=== PATIENT | female | born 1960 | race Caucasian/White ===

== ENCOUNTER 2022-04-24 15:14 | Outpatient (CLI) | payer BC, SELFPAY ==
--- NOTE | 2022-04-24 15:20 | CRLHL7_ITS ---
For Patients: As a result of the Cures Act, medical imaging exams and procedure reports are released immediately into your electronic medical record. You may view this report before your referring provider. If you have questions, please contact your health care provider. BILATERAL SCREENING MAMMOGRAM WITH COMPUTER-AIDED DETECTION AND TOMOSYNTHESIS TECHNIQUE: CC and MLO views were obtained. These mammographic images have been obtained using full-field digital technique. These mammographic images were interpreted with the benefit of computer-aided detection. Breast Tomosynthesis was used in this interpretation. COMPARISON FILM: 02/23/21, 01/12/20, 04/04/18. FINDINGS: The breasts are almost entirely fatty IMPRESSION: There is no radiographic evidence for malignancy. ASSESSMENT: BI-RADS Category 1: Negative RECOMMENDATION: Routine screening mammogram in 1 year. A lay language report of this examination will be provided to the patient. Pepe Angel M.D. Diagnostic Radiologist [email or web address] EARLENE/addis / be/Dictated by: Pepe Angel MD @ 04/25/2022 1:15:00 PM (Electronically Signed)
== END 2022-04-24 15:15 | disposition home or self-care (01) ==
LOC: MAMMO 15:15
PROVIDERS: PCP Internal Medicine; Visit Provider Internal Medicine
DX: Z12.31 Encounter for screening mammogram for malignant neoplasm of breast (principal)
CPT/HCPCS: 77063; 77067

== ENCOUNTER 2022-12-14 08:00 | Outpatient (CLI) | payer BC, SELFPAY ==
--- OUTSIDE RECORDS SUMMARY | 2022-12-15 07:32 | XMS_ITS | Continuity of Care Document ---
Author Name Unknown Organization [facility] Address [address] [place] [address] Phone Care Team Providers Care Asset Protection Detective Name Role Phone Kerwin Huerta MD Unavailable Unavailable Allergies, Adverse Reactions, Alerts Substance Reaction Status Criticality venom-honey bee Active No Informati on Medications Medication Instructions Dosage Effective Dates (start - stop) Status Comments LASIX (unknown strength) Not Available - Active ATORVASTATIN CALCIUM (unknown strength) Not Available - Active prednisone 20 mg tablet take 1 tablet twice daily x 7 days, then 1 tablet daily x 7 days - No Longer Active Mobic 7.5 mg tablet take 1 tablet (7.5MG) by oral route twice daily - No Longer Active Refills per PMD Procedures Procedure Date Office/Outpatient Visit,[facility] [place] Office/Outpatient Visit,[facility], [facility] 2011 Advance Directives Directive Yes / No Effective Date File Name No Information Encounters Encounter Description Practice Location Reason(s) For Visit Diagnoses Date Provider Providers Copied on Encounter Office/Outpat ient Visit,[place], [facility], [address], [place], [place], [id number], [place] tel:[phone] [facility] [place] Other intervertebral disc displacement, lumbar regionSpinal stenosis, lumbar region with neurogenic claudication 8 Bradley Suresh. [facility], [address], [address], [place], [place], [id number] , [place]. tel:[phone] Referring Provider: Kerwin Rodriguez, [facility] [address], [address], [place], [address] . tel:[phone] Office/Outpat ient Visit,New, [facility], [address], [place], [address], [place] tel:[phone] [facility] Hypercholestero lemiaArthropath y/Arthritis 2 Bradley Suresh. [facility], [address], [address], [place], [place], [id number] , . [phone] Family History Family Member Type Diagnosis Age At Onset No Information Payers Payer name Insurance type Covered democrat ID Nanda lira(kaye Beard CI [id number] Social History Type Description Quantity Date Captured Comments Alcohol Use Details Unknown Caffeine Use Details Unknown Tobacco Use Status Never smoked tobacco 2017 Smoking Status Never smoker Non-Smoking Tobacco Use Details : No Details Available : No Details Available Sex Female Vital Signs Date / Time: Height Weight BMI Pulse Rate Blood Pressure Temperature Respiratory Rate Body Surface Area Head Circumference Head Circ. Percentile Wt./Jr. Percentile BMI percentile Pulse Ox Inhaled Ox 2:20 PM 65.25 in 67.585 kg (149.00 lbs) 24.6 0 kg/m eter (2) Chief Complaint And Reason For Visit No Information Reason For Referral Reason For Referral No Information History Of Present Illness Encounter Date Complaint History Of Prese nt Illness No Information Functional Status Date Functional Assessmen t No Information Instructions Date Instruction Additional Infor mation No Information Assessments Type Assessment Date assessment Other intervertebral disc displa cement, lumbar region assessment Spinal stenosis, lumbar region w ith neurogenic claudication Patient Care Teams Name Effective Dates (start - stop) Status Members No Information
== END 2022-12-14 08:01 | disposition home or self-care (01) ==
LOC: NFLDREF 12-15 07:31
PROVIDERS: PCP Internal Medicine; Referring Provider Internal Medicine; Visit Provider Internal Medicine
DX: Z00.00 Encounter for general adult medical examination without abnormal findings (principal); E78.5 Hyperlipidemia, unspecified; I10 Essential (primary) hypertension; E66.9 Obesity, unspecified
CPT/HCPCS: 80048; 80061

== ENCOUNTER 2023-05-24 11:34 | Outpatient (CLI) | payer BC, SELFPAY | END 2023-05-24 11:35 | disposition home or self-care (01) | LOC: NFLDREF 11:35 | PROVIDERS: PCP Internal Medicine; Visit Provider Internal Medicine | DX: Z01.818 Encounter for other preprocedural examination (principal) | CPT/HCPCS: 80053 ==

== ENCOUNTER 2023-06-06 08:53 | Day surgery (SDC) | payer BC, SELFPAY ==
[2023-06-06] VITALS (25 sets, daily range): BP systolic 92–143; BP diastolic 61–84; PULSE 50–72; RESP 16–18; TEMP 35.4–36.7; O2SAT 92–100; BMI 36.0
[2023-06-06] MEDS: ACETAMINOPHEN 500 MG TABLET 1000 MG PO ×3 (09:00→23:53)
[2023-06-06] MEDS: OXYCODONE (CR) 10 MG TAB.ER.12H PO (09:00)
[2023-06-06] MEDS: LACTATED RINGERS 1000 ML 1,000 ML 100 ML IV ×3 (09:15→13:50)
[2023-06-06] MEDS: SODIUM CHLORIDE 0.9 % (FLUSH) 10 ML SYRINGE IVF (09:15)
--- NOTE | 2023-06-06 09:45 | XR_ITS ---
Patient: ANNA CARRINGTON Facility:?[facility] Patient ID:?[id number] Site Patient ID:?[id number]. Site :?1960 Study:?XRay-Hip Left 2V POST OP-06/06/2023 2:06:12 PM Ordering Physician:ADRIANA Final Report: Indication: Postop Technique: AP hip centered pelvis and lateral view left hip Findings/Impression: Hardware from a left total hip arthroplasty is in satisfactory position. Bone alignment is normal. No sign of acute fracture. Postop changes are within normal limits. Dictated by Pepe Angel MD @ 06/07/2023 8:19:22 AM Signed by:?Pepe Angel MD @06/07/2023 8:19:22 AM (Electronic Signature)
--- NOTE | 2023-06-06 09:46 | W.PM.H&PU ---
History & Physical Update History & Physical Update H&P Reviewed and patient assessed: No changes noted
--- NOTE | 2023-06-06 09:47 | SUR.PREOP ---
TIME?OUT:?0947 PT/RN/AUDIT MACHINE OPERATOR?VERIFICATION?OF?SURGICAL?SITE,?PROCEDURE,?AND?CONSENT OBTAINED?PRIOR?TO?INVASIVE?PROCEDURE.
[2023-06-06] MEDS: fentaNYL 100 MCG/2 ML inj IVP (09:52)
[2023-06-06] MEDS: MIDAZOLAM HCL 1 MG/ML inj IVP (09:52)
--- NOTE | 2023-06-06 10:00 | XR_ITS ---
Patient: ANNA CARRINGTON Facility:?[facility] Patient ID:?[id number] Site Patient ID:?[id number]. Site :?1960 Study:?XRay-Extremity Left TOTAL HIP, AA-06/06/2023 2:25:30 PM Ordering Physician:ADRIANA Final Report: Indication: Hip replacement surgery Technique: AP hip fluoroscopic image. Fluoroscopy time 54.6 seconds. Findings/Impression: Hardware from a left total hip arthroplasty is in satisfactory position. Dictated by Pepe Angel MD @ 06/07/2023 12:34:22 PM Signed by:?Pepe Angel MD @06/07/2023 12:34:22 PM (Electronic Signature)
--- NOTE | 2023-06-06 10:38 | W.PM.NB ---
Nerve Block Nerve Block Time Seen by Provider: 10:05 Date Seen: 06/06/23 Type of block requested by surgeon for post-operative analgesia: RONAL/LFCN Side: left Time out performed: Yes Verification of patient name: Yes Verification of date of : Yes Site marking: site marked Name of person performing procedure: Vinay Dominguez Assistants, if any: Arsenio Ramachandran Continuous monitoring Was continuous monitoring of O2 sat, B/P, environmental monitoring specialist, recorded every 15 minutes?: Yes Procedure Checklist: sterile prep, needles and gloves Ultrasound guided. Images saved: Yes Medications given in 5ml increments after negative aspiration: Ropivicaine %: 0.5 mL: 30 Needle gauge: 21 Decadron (mg): 10 Precedex (mcg): 25 Patient tolerated procedure well: Yes Additional comments: Injected in 5mL increments after negative aspiration Block Charges Block Charge (with Pro Fee): Other Periph Nerve Block (RONAL/LFC) Use of Ultrasound Machine for Block: Yes- US Guidance/pain block
[2023-06-06] MEDS: TRANEXAMIC ACID 100 MG/ML INJ 1000 MG IV (11:09)
[2023-06-06] MEDS: CEFAZOLIN 2 GM in 0.9 % SODIUM CHLORIDE Mini-bag 100 ML IVPB ×2 (11:09→18:33)
--- NOTE | 2023-06-06 12:24 | P.ORPRC_ITS ---
Procedure Note Date of procedure: 06/06/23 Procedure: PREOPERATIVE DIAGNOSIS: 1. Left hip osteoarthritis, severe, primary POSTOPERATIVE DIAGNOSIS: 1. Left hip osteoarthritis, severe, primary PROCEDURE: 1. Left total hip arthroplasty-anterior approach 2. 46965 - intraoperative fluoroscopy up to 1 hour. SURGEON: Artie Mariee MD. WARRANTY MANAGER: Karan Sheldon PA-C; MANAN Rubio - Of note, a skilled assisted living assistant was critical for this case to aid in patient positioning, tissue retraction, limb manipulation/positioning, dislocation/relocation, patient safety, and closure. ANESTHESIA: Spinal anesthetic EBL: 300 mL IMPLANTS: DePuy J&J uncemented total hip [place] cup size 50, hole eliminator, +0 neutral liner Actis stem, high offset, size 8 +1 mm ceramic 32mm head. COMPLICATIONS: None evident INDICATIONS: The patient is a pleasant 63-year-old female who has experienced severe left hip pain and difficulty bearing weight. Workup included x-rays which revealed severe osteoarthrosis in the hip. Given the deformity, the dysf unction, and the pain, as well as the failure of nonoperative management, recommendation was made for surgery. FINDINGS: Full-thickness cartilage loss diffusely throughout the femoral head and acetabulum. Large osteophytes around the perimeter of the acetabulum and femoral head/neck junction. Moderate effusion upon entering the joint. Abundant synovitis noted throughout the hip. DESCRIPTION OF PROCEDURE: Following a thorough discussion of risks, benefits, and alternatives consent was obtained and the left hip was marked. The patient was brought to the operating room and placed supine on the operating table. Induction of anesthesia was undertaken. 2 g IV Ancef and 1 g tranexamic acid was administered within 1 hr of incision preoperatively. Proper time-out was performed identifying proper patient, site, procedure. The operative extremity was prepped and draped in the appropriate sterile fashion using ChloraPrep after the patient was positioned on the [place] table with head in neutral alignment and all bony prominences well padded. C-arm fluoroscopic imaging was utilized to confirm proper pelvis rotation and position, and to get true AP films of both the contralateral left, and the affected left hip. This is for comparison. A longitudinal incision was made starting approximately 1 cm distal to the ASIS, and 3-4 cm lateral. The incision was extended distally aiming toward the lateral border the patella. Sharp incision through skin and bovie cautery through the subcutaneous tissue allowed identification of the TFL fascia. This was sharply divided, and the fascia bluntly released from the muscle fibers as we dissected medial. Upon coming to the medial border, we were able to retract the TFL laterally, and penetrated the deeper fascia and identify the crossing circumflex vessels. These were ligated/cauterized. The rectus was elevated from the capsule, and retractors placed laterally and medially along the femoral neck to help with visualization of the capsule. We then performed an inverted T capsulotomy. The capsule was tagged for later repair. Retractors were placed inside the capsule. The femoral neck was visualized after releasing medially down to the lesser trochanter, along the saddle laterally, and up onto the acetabulum. The femoral neck cut was made in line with our preoperative templating. The head was removed in a single piece, and sized. We turned our attention to acetabular preparation. Initially, the labrum was resected from around the perimeter, the pulvinar was excised, allowing us to visualize the false wall. We started the reaming with a 43 mm reamer. This was medialized down to the true wall. We then enlarged our reamers sequentially up to one size less than the selected cup size. We trialed at the same size and found it to have an excellent fit. The selected cup was then opened, inserted, and impacted in line with the goal of 40-45? of abduction, and 20-25? of anteversion. This was confirmed on C-arm fluoroscopic imaging to be in the appropriate/goal position. Once the cup was placed we placed a hole eliminator and a liner consistent with preop planning. Attention was turned to the femoral preparation. The limb was extended, externally rotated, and adducted. The posteromedial capsule was released, as retractors were placed allowing excellent access to the proximal femur. Initially a card boxer was followed by canal finder followed by various broaches. We broached sequentially up to size noted above, found it to have excellent rotational control, and trialing various heads and necks, revealed that appropriate neck offset, and the above noted head size provided the greatest stability, and samaritan of length, and offset. C-arm fluoroscopic imaging confirmed position of the stem, as well as leg lengths, which were compared with the pre procedure all fluoroscopic images. Trial implants were removed, the real femoral stem inserted, as was the ceramic head. After reducing, the leg was placed through range of motion and stability was confirmed anterior, posterior, and lateral. A 3 min Betadine soak was then performed, and thorough irrigation with normal saline followed. Closure of the capsule was performed with #1 PDS. Bleeding was confirmed to be controlled at this stage, and the TFL fascia was closed with #0 strata fix. Subcutaneous, and subcuticular closure was performed with 2-0 Vicryl and 4-0 Monocryl, respectively. Dressings were applied, and the patient was awoken from anesthesia and transferred the PACU in stable condition. A skilled assisted living assistant was critical for this case to aid in patient positioning, tissue retraction, proximal femur exposure, limb manipulation/positioning, dislocation/relocation, patient safety, and closure. PLAN: 1. Weight bear as tolerated operative extremity. 2. 23 hr perioperative antibiotics. 3. Ice. 4. PT/OT consults for ambulation assistance/mobility education. 5. Social work consult for discharge planning. 6. [place] [facility] [place] and [place].
--- NOTE | 2023-06-06 13:30 | W.ANESCHARGE ---
Anesthesia Charges Start Date/Time Anesthesia Start Date: 06/06/23 Anesthesia Start Time: 10:40 Stop Date/Time Anesthesia Stop Date: 06/06/23 Anesthesia Stop Time: 13:24
[2023-06-06] MEDS: METOCLOPRAMIDE HCL 5 MG/ML INJ 10 MG IVP (13:40)
[2023-06-06] MEDS: fentaNYL 100 MCG/2 ML inj 50 MCG IVP ×2 (13:48→14:00)
[2023-06-06] MEDS: OXYCODONE 5 MG TABLET PO ×2 (18:39→22:11)
--- NOTE | 2023-06-06 19:27 | PM.IMCN1 ---
Date of Consult Patient: [facility] Patient Consult date: 06/06/23 Requesting Physician: Orthopedics Primary Care Provider: Alyssa Xavier MD Consult Narrative Reason for consult: h/o PE and DVT Narrative: Ignacia Miller is a 63 year old female with a history of postop PE and DVT in 2019 that was treated with apixaban, essential hypertension, hyperlipidemia, left bundle-branch block, and obesity who underwent elective left total hip arthroplasty today by Dr. Anaya. She is doing well postoperatively. She denies any chest pain or shortness of breath. She notes that this postop. Is going a lot better than it did when she had ankle surgery in 2019. She tells me that she has pain in the muscles and ligaments around her left hip, but the joint itself is no longer painful like it has been before surgery, and that is a big relief to her. She had a bit of dizziness earlier getting up to use the bedside commode, but this time using the bedside commode she had no dizziness. Review of Systems Status of ROS: Reports: 6 or more systems reviewed and unremarkable except as noted in History and below PFSH [facility] Medical History (Updated 06/06/23 @ 19:49 by Ellen Cameron MD) Left bundle branch block (LBBB) ?I44.7 - Left bundle-branch block, unspecified (ICD-10) Localized osteoarthrosis of right hip ?M16.11 - Unilateral primary osteoarthritis, right hip (ICD-10) Localized osteoarthrosis of left hip ?M16.12 - Unilateral primary osteoarthritis, left hip (ICD-10) Essential hypertension ?I10 - Essential (primary) hypertension (ICD-10) Obesity with body mass index greater than 30 ?E66.9 - Obesity, unspecified (ICD-10) Hyperlipidemia (09/19/11) ?E78.5 - Hyperlipidemia, unspecified (ICD-10) Adenomatous polyp of colon (12/2019) ?D12.6 - Benign neoplasm of colon, unspecified (ICD-10) History of pulmonary embolism (2019) ?Z86.711 - Personal history of pulmonary embolism (ICD-10) History of deep venous thrombosis (2019) ?Z86.718 - Personal history of other venous thrombosis and embolism (ICD-10) History of renal calculi ?Z87.442 - Personal history of urinary calculi (ICD-10) Surgical History (Updated 06/06/23 @ 19:41 by Ellen Cameron MD) S/P total left hip arthroplasty ?Z96.642 - Presence of left artificial hip joint (ICD-10) Rupture of ligament of left ankle ?S93.402A - Sprain of unspecified ligament of left ankle, initial encounter (ICD-10) History of bilateral carpal tunnel release ?Z98.890 - Other specified postprocedural states (ICD-10) History of SCC (squamous cell carcinoma) of skin ?Z85.828 - Personal history of other malignant neoplasm of skin (ICD-10) History of arthroscopy of left shoulder (2005) ?Z98.890 - Other specified postprocedural states (ICD-10) History of pubovaginal sling (06/2005) ?Z96.0 - Presence of urogenital implants (ICD-10) History of facial surgery ?Z98.890 - Other specified postprocedural states (ICD-10) History of endometrial ablation (06/2005) ?Z98.890 - Other specified postprocedural states (ICD-10) History of carpal tunnel release ?Z98.890 - Other specified postprocedural states (ICD-10) History of breast biopsy (09/19/11) ?Z98.890 - Other specified postprocedural states (ICD-10) History of arthroscopic knee surgery (03/2019) ?Z98.890 - Other specified postprocedural states (ICD-10) Family History Mother Bleeding tendency Father High blood pressure Heart problem Maternal Grandmother High blood pressure Heart problem Paternal Grandfather Stroke High blood pressure Social History (Updated 06/06/23 @ 19:37 by Ellen Cameron MD) Narrative: . 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 Denies tobacco use. Smoked socially in college. Recently cut down alcohol use due to 's elevated glucose test. Now drinking 2-3 drinks twice a week. Denies recreational drug use. What is your current living situation?: I presently have a place to live Problems where you live: no known problems In the past 12 months, utilities in danger of being shut off: no In past 12 months, lack of transportation kept you from medical appts, meetings, work, or getting things needed for daily living: no In the past 12 mos, have been you worried that your food would run out before you had money to buy more?: never true In the past 12 mos, the food you bought just didn't last and you didn't have money to buy more?: never true Highest level of school completed/degree received: Associate degree: occupational, technical, vocational program Smoking Status: Never smoker Do you use any of these nicotine containing products: None Second hand tobacco smoke exposure: No How often do you have a drink containing alcohol: 2-3 times a week Alcohol type: wine and hard liquor How many standard drinks containing alcohol do you have on a typical day: 1 or 2 How often do you have six or more drinks on one occasion: Never AUDIT-C Alcohol total score: 3 Non-prescribed substance use: denies use Caffeine: Yes How often does anyone, including family, friends and others, physically hurt you: never How often does anyone, including family, friends and others, insult or talk down to you: never How often does anyone, including family, friends and others, threaten you with harm: never How often does anyone, including family, friends and others, scream or curse at you: never Little interest or pleasure in doing things: not at all Feeling down, depressed, or hopeless: several days service: No Meds Home Medications and Allergies Home Medications Medication Instructions Recorded Confirmed Type cinnamon bark 500 mg capsule 500 mg PO DAILY 09/06/21 06/06/23 History turmeric 450 mg-turmeric root 1 cap PO DAILY 09/06/21 06/06/23 History extract 50 mg capsule ketoconazole 2 % topical cream 1 applic topical BID PRN 12/18/22 06/06/23 History sulfacetamide sodium (acne) 10 % 1 applic topical BID PRN 12/18/22 06/06/23 History lotion (suspension) (K[place]on) simvastatin 20 mg tablet 20 mg PO HS 06/06/23 06/06/23 History Allergies Allergy/AdvReac Type Severity Reaction Status Date / Time bee venom protein (honey bee) AdvReac Verified 06/06/23 09:06 Exam Narrative: Exam Narrative: General: No acute distress. Awake alert oriented x3. HEENT: Normocephalic atraumatic, pupils equally round and reactive to light and accommodation. Oropharynx clear. Mucous membranes are moist. No cervical lymphadenopathy, thyromegaly or carotid bruits. No JVD. Cardiovascular: Regular rate and rhythm. No murmurs, gallops, or rubs. Chest: No increased work of breathing. Clear to auscultation bilaterally. No crackles or wheezes. Abdomen: Bowel sounds present. Soft, nondistended, nontender. No hepatosplenomegaly or masses. Extremities: Left hip bandage is clean, dry, and intact. No edema, no cyanosis or clubbing. Skin: No jaundice, no pallor, no rashes. Const: Vital Signs, click to edit/add: Vital Signs - 24 hr 06/06/23 09:40 06/06/23 09:52 06/06/23 09:55 Temperature 98.0 F Pulse Rate 61 60 68 Respiratory Rate 16 16 16 Blood Pressure 143/83 H 128/82 122/84 Pulse Oximetry 100 100 100 Oxygen Delivery Me thod Room Air Nasal Cannula Nasal Cannula Oxygen Flow Rate 2 2 06/06/23 10:00 06/06/23 10:05 06/06/23 10:15 Temperature Pulse Rate 70 65 62 Respiratory Rate 16 16 16 Blood Pressure 128/76 114/79 111/65 Pulse Oximetry 98 99 98 Oxygen Delivery Me thod Nasal Cannula Nasal Cannula Nasal Cannula Oxygen Flow Rate 2 2 2 06/06/23 10:30 06/06/23 13:20 06/06/23 13:25 Temperature 97.6 F Pulse Rate 61 66 59 L Respiratory Rate 16 16 16 Blood Pressure 92/61 99/74 102/71 Pulse Oximetry 98 95 95 Oxygen Delivery Me thod Nasal Cannula Nasal Cannula Nasal Cannula Oxygen Flow Rate 2 2 2 06/06/23 13:30 06/06/23 13:35 06/06/23 13:40 Temperature 97.7 F Pulse Rate 56 L 50 L 62 Respiratory Rate 16 16 16 Blood Pressure 109/72 114/70 114/63 Pulse Oximetry 100 95 100 Oxygen Delivery Me thod Room Air Room Air Room Air Oxygen Flow Rate 06/06/23 13:50 06/06/23 13:55 06/06/23 14:00 Temperature 97.7 F Pulse Rate 58 L 62 63 Respiratory Rate 16 16 16 Blood Pressure 116/67 112/66 123/67 Pulse Oximetry 97 100 100 Oxygen Delivery Me thod Room Air Room Air Room Air Oxygen Flow Rate 06/06/23 14:08 06/06/23 14:15 06/06/23 14:30 Temperature 95.7 F L 95.9 F L Pulse Rate 70 62 68 Respiratory Rate 16 16 16 Blood Pressure 131/76 138/74 116/65 Pulse Oximetry 98 92 95 Oxygen Delivery Me thod Room Air Room Air Room Air Oxygen Flow Rate 06/06/23 14:45 06/06/23 15:00 06/06/23 15:30 Temperature 96.5 F L Pulse Rate 58 L 66 69 Respiratory Rate 16 18 16 Blood Pressure 122/76 102/64 100/62 Pulse Oximetry 94 92 94 Oxygen Delivery Me thod Room Air Room Air Room Air Oxygen Flow Rate 06/06/23 16:00 06/06/23 17:00 06/06/23 18:00 Temperature 97.3 F L 97.4 F L Pulse Rate 59 L 64 68 Respiratory Rate 16 16 16 Blood Pressure 108/61 101/68 105/66 Pulse Oximetry 93 94 95 Oxygen Delivery Me thod Room Air Room Air Room Air Oxygen Flow Rate Assessment and Plan Assessment and plan (1) S/P total left hip arthroplasty: Problem comment: - 06/06/23 Dr. Anaya - routine postop cares - VTE prophylaxis with rivaroxaban considering history of postop PE and DVT in 2019 Status: Acute (2) Localized osteoarthrosis of left hip: Problem comment: Severe Status: Chronic (3) Essential hypertension: Problem comment: - Triamterene/HCTZ started 05/2015, cardiology stopped Atenolol 11/2020 (which she restarted atenolol 05/2021) - BP's low normal this evening and she was a little dizzy getting up the 1st time in the room, but this 2nd time she says she is no longer dizzy. She took her antihypertensives this morning before surgery. - hold triamterene hydrochlorothiazide and atenolol. Plan to resume these upon homegoing. Status: Chronic
[2023-06-06] MEDS: SENNOSIDES 1 TAB TABLET 2 TAB PO (22:10)
[2023-06-06] MEDS: SIMVASTATIN 20 MG TABLET PO (22:33)
[2023-06-07] MEDS: CEFAZOLIN 2 GM in 0.9 % SODIUM CHLORIDE Mini-bag 100 ML IVPB (01:52)
[2023-06-07] MEDS: OXYCODONE 5 MG TABLET PO ×2 (02:33→08:48)
[2023-06-07 03:03] VITALS: BP 118/68; PULSE 63; RESP 16; TEMP 36.8; O2SAT 93
[2023-06-07] MEDS: ACETAMINOPHEN 500 MG TABLET 1000 MG PO (05:50)
[2023-06-07 06:25] LABS: Basophils Percent Auto 0.1 % (0.0-3.0); Hematocrit 36.2 % (33.0-51.0); Hemoglobin* 12.1 gm/dL (12.0-16.0); Immature Granulocytes Pct Auto 1.2 %; Lymphocytes Percent Auto 5.1 % (20-44); Mean Corpuscular HGB Conc 33 gm/dL (32-36); Mean Corpuscular Hemoglobin 33 pg (26-34); Mean Corpuscular Volume 99 fL (80-100); Monocytes Percent Auto 6.2 % (0.0-11.0); Neutrophils Percent Auto 87.4 % (42.0-72.0); Platelet Count* 301 K/uL (140-440); RDW Coefficient of Variation % 13.1 % (11.5-15.5); Red Blood Count 3.67 m/uL (4.00-5.20)
[2023-06-07 06:28] LABS: Slide Review Reflex No
--- NOTE | 2023-06-07 06:39 | PC.NURSE ---
End of shift [id number]: A&O pleasant and cooperative. VSS with sats >90% on RA. Reporting pain in left hip 3-5. See eMAR for interventions. Positive CMS. Denies any SOB or chest pain. Up with SBA, FWW, and gait belt. Denies any lightheadedness or dizziness when ambulating. Voiding adequate amounts. Saline locked. Take in oral liquids. denies n/v. Dressing to left hip c/d/i. Ice pack to hip.
[2023-06-07 06:44] LABS: Potassium* 3.9 mmol/L (3.6-5.1); Sodium* 135 mmol/L (135-149)
[2023-06-07 06:47] LABS: Blood Urea Nitrogen* 18 mg/dL (7-30); Creatinine* 0.9 mg/dL (0.5-1.5); Est. Creatinine Clearance* 49.72; Estimated Glomerular Filt Rate 72 ml/min
[2023-06-07 07:00] VITALS: BP 110/66; PULSE 73; RESP 20; TEMP 36.8; O2SAT 98
[2023-06-07] MEDS: SENNOSIDES 1 TAB TABLET 2 TAB PO (08:48)
[2023-06-07] MEDS: RIVAROXABAN 10 MG TABLET PO (08:48)
--- NOTE | 2023-06-07 10:05 | PM.ORPN ---
Subjective Subjective Date Seen: 06/07/23 Principal diagnosis: Status postop day 1, left total hip arthroplasty - anterior approach Interval history: Patient reports doing well. No acute events over night. Dull aching pain through the femur and thigh. Pain managed with scheduled and PRN medications, ice. She reports that the pain is much better than the preoperative stabbing groin pain. DVT prophylaxis: Received 10 mg is relative this morning, now switched to apixaban twice daily which she was on in 2019 with her DVT and PE; bilateral knee high Evans stockings, SCDs, walking. Denies fevers, chills, aches, N/V, CP, SOB/MESSER, or lightheadedness. She reports that when walking, the left leg feels a little long. Patient states that she knows this is due to her abnormal walking preoperative. Ortho Exam Narrative Exam Narrative: -Patient appears comfortable in declined; no apparent acute distress. Dressed in street clothes. PT present. present. -Alert and oriented times 3 -Operative hip mildly swollen; soft tissues supple; no obvious erythema. Ecchymosis minimal. Warmth appropriate -Surgical dressing clean, dry; the bandage is coming off on the proximal end. No obvious drainage, no erythematous streaking peripheral to the bandage -Bilateral calves soft and supple; no significant swelling, edema, tenderness, erythema, discoloration, warmth, or palpable cords. No tenderness to palpation within the posterior thigh -2+ DP/PT pulses, intact dermatomes and myotomes distally (5/5 strength). Const Vital Signs, click to edit/add: Vital Signs - 24 hr 06/06/23 10:15 06/06/23 10:30 06/06/23 13:20 Temperature 97.6 F Pulse Rate 62 61 66 Pulse Rate [Left Pulse Oximeter] Respiratory Rate 16 16 16 Blood Pressure 111/65 92/61 99/74 Blood Pressure [Right Arm] Pulse Oximetry 98 98 95 Oxygen Delivery Method Nasal Cannula Nasal Cannula Nasal Cannula Oxygen Flow Rate 2 2 2 06/06/23 13:25 06/06/23 13:30 06/06/23 13:35 Temperature 97.7 F Pulse Rate 59 L 56 L 50 L Pulse Rate [Left Pulse Oximeter] Respiratory Rate 16 16 16 Blood Pressure 102/71 109/72 114/70 Blood Pressure [Right Arm] Pulse Oximetry 95 100 95 Oxygen Delivery Method Nasal Cannula Room Air Room Air Oxygen Flow Rate 2 06/06/23 13:40 06/06/23 13:50 06/06/23 13:55 Temperature Pulse Rate 62 58 L 62 Pulse Rate [Left Pulse Oximeter] Respiratory Rate 16 16 16 Blood Pressure 114/63 116/67 112/66 Blood Pressure [Right Arm] Pulse Oximetry 100 97 100 Oxygen Delivery Method Room Air Room Air Room Air Oxygen Flow Rate 06/06/23 14:00 06/06/23 14:08 06/06/23 14:15 Temperature 97.7 F 95.7 F L Pulse Rate 63 70 62 Pulse Rate [Left Pulse Oximeter] Respiratory Rate 16 16 16 Blood Pressure 123/67 131/76 138/74 Blood Pressure [Right Arm] Pulse Oximetry 100 98 92 Oxygen Delivery Method Room Air Room Air Room Air Oxygen Flow Rate 06/06/23 14:30 06/06/23 14:45 06/06/23 15:00 Temperature 95.9 F L 96.5 F L Pulse Rate 68 58 L 66 Pulse Rate [Left Pulse Oximeter] Respiratory Rate 16 16 18 Blood Pressure 116/65 122/76 102/64 Blood Pressure [Right Arm] Pulse Oximetry 95 94 92 Oxygen Delivery Method Room Air Room Air Room Air Oxygen Flow Rate 06/06/23 15:30 06/06/23 16:00 06/06/23 17:00 Temperature 97.3 F L Pulse Rate 69 59 L 64 Pulse Rate [Left Pulse Oximeter] Respiratory Rate 16 16 16 Blood Pressure 100/62 108/61 101/68 Blood Pressure [Right Arm] Pulse Oximetry 94 93 94 Oxygen Delivery Method Room Air Room Air Room Air Oxygen Flow Rate 06/06/23 18:00 06/06/23 23:00 06/07/23 03:03 Temperature 97.4 F L 98.1 F 98.2 F Pulse Rate 68 Pulse Rate [Left Pulse Oximeter] 72 63 Respiratory Rate 16 18 16 Blood Pressure 105/66 Blood Pressure [Right Arm] 121/70 118/68 Pulse Oximetry 95 97 93 Oxygen Delivery Method Room Air Room Air Room Air Oxygen Flow Rate 06/07/23 07:00 06/07/23 07:00 Temperature 98.2 F Pulse Rate Pulse Rate [Left Pulse Oximeter] 73 73 Respiratory Rate 20 20 Blood Pressure Blood Pressure [Right Arm] 110/66 Pulse Oximetry 98 Oxygen Delivery Method Room Air Oxygen Flow Rate Assessment and Plan Assessment and plan (1) S/P total left hip arthroplasty: Problem details: - 06/06/23 Dr. Anaya - routine postop cares - VTE prophylaxis with apixaban 2.5 mg twice daily for 35 days considering history of postop PE and DVT in 2019 Status: Acute (2) Localized osteoarthrosis of left hip: Problem details: Severe Status: Chronic (3) Essential hypertension: Problem details: - Triamterene/HCTZ started 05/2015, cardiology stopped Atenolol 11/2020 (which she restarted atenolol 05/2021) - BP's low normal this evening and she was a little dizzy getting up the 1st time in the room, but this 2nd time she says she is no longer dizzy. She took her antihypertensives this morning before surgery. - hold triamterene hydrochlorothiazide and atenolol. Plan to resume these upon homegoing. Status: Chronic Plan - Complete 23 hour perioperative antibiotics. - PT/OT consult for education and assistance. - Social work consult for discharge planning - Prescribed analgesics as needed - DVT prophylaxis: Apixaban, bilateral knee high Evans Hose stockings and SCDs - Anticipation is for discharge to home with spouse today, 06/07/2023 if the patient remains medically stable, pain is controlled, and they are safe with mobilization. - please place a large Tegaderm over the proximal aspect of the bandage to ensure proper skin adhesion and integrity. Messaged delivered to charge nurse.
--- NOTE | 2023-06-07 10:16 | P.DS_ITS ---
DS: Providers Provider Date Seen: 06/07/23 Primary care physician: Alyssa Xvaier MD Attending Physician on discharge: Artie Mariee MD Date of Discharge: 06/07/23 DS: Diagnosis Discharge Diagnosis (1) S/P total left hip arthroplasty: Status: Acute Problem details: - 06/06/23 Dr. Anaya - routine postop cares - VTE prophylaxis with apixaban 2.5 mg twice daily for 35 days considering history of postop PE and DVT in 2019 (2) History of deep venous thrombosis: Status: Acute Problem details: Post-op, 07/2018, tx with apixaban (through [facility] cardiology) 07/2018-11/2020. Occurred following foot and ankle surgery with immobilization in a cam walker boot and kneeling walker (3) History of pulmonary embolism: Status: Acute Problem details: Post-op 07/2018, tx with apixaban (through [facility] cardiology) 07/2018-11/2020 DS: Summary Hospital Course Hospital Course: 63-year-old female admitted to the hospital for left total hip arthroplasty. Procedures performed by Dr. Mariee on the day of admission. No operative complications. Postoperatively she is doing quite well. She reports her pain is better than it was preoperatively. Postoperatively she did have a sore throat and had some trouble eating but this morning she is able to eat. Presumably secondary to throat irritation from intubation. Patient has a history of DVT and PE in 2018 following foot and ankle surgery. She had the surgery and was put in a cam walker type boot afterwards. She was using a kneeling walker or crutches to get around. But 2 and half weeks after surgery she did take a flight to [place]. Following return from [place] she developed the DVT and PE. She was never diagnosed with a thrombophilia syndrome by blood testing.. I discussed with her postoperative prophylaxis for DVT today. I consider her to be at high risk for DVT given that she just had hip surgery and that she has had a previous DVT and PE after foot and ankle surgery. After discussion we agreed to treat with prophylactic dose apixaban 2.5 mg b.i.d. for 35 days. Status at Discharge Functional status at discharge: uses cane/walker Overall status at discharge: patient is progressing back to baseline Time Spent with Patient Time attestation: Total time spent providing and/or coordinating discharge services: Time spent: Less than 30 minutes Exam Narrative: Exam Narrative: She is alert and appears in no distress. Lower extremities examined. No significant edema. She has intact pulses and sensation in both feet and ankles. Intact strength and motion in her left foot. Const: Vital Signs, click to edit/add: Vital Signs - 24 hr 06/06/23 10:30 06/06/23 13:20 06/06/23 13:25 Temperature 97.6 F Pulse Rate 61 66 59 L Pulse Rate [Left P ulse Oximeter] Respiratory Rate 16 16 16 Blood Pressure 92/61 99/74 102/71 Blood Pressure [Ri ght Arm] Pulse Oximetry 98 95 95 Oxygen Delivery Me thod Nasal Cannula Nasal Cannula Nasal Cannula Oxygen Flow Rate 2 2 2 06/06/23 13:30 06/06/23 13:35 06/06/23 13:40 Temperature 97.7 F Pulse Rate 56 L 50 L 62 Pulse Rate [Left P ulse Oximeter] Respiratory Rate 16 16 16 Blood Pressure 109/72 114/70 114/63 Blood Pressure [Ri ght Arm] Pulse Oximetry 100 95 100 Oxygen Delivery Me thod Room Air Room Air Room Air Oxygen Flow Rate 06/06/23 13:50 06/06/23 13:55 06/06/23 14:00 Temperature 97.7 F Pulse Rate 58 L 62 63 Pulse Rate [Left P ulse Oximeter] Respiratory Rate 16 16 16 Blood Pressure 116/67 112/66 123/67 Blood Pressure [Ri ght Arm] Pulse Oximetry 97 100 100 Oxygen Delivery Me thod Room Air Room Air Room Air Oxygen Flow Rate 06/06/23 14:08 06/06/23 14:15 06/06/23 14:30 Temperature 95.7 F L 95.9 F L Pulse Rate 70 62 68 Pulse Rate [Left P ulse Oximeter] Respiratory Rate 16 16 16 Blood Pressure 131/76 138/74 116/65 Blood Pressure [Ri ght Arm] Pulse Oximetry 98 92 95 Oxygen Delivery Me thod Room Air Room Air Room Air Oxygen Flow Rate 06/06/23 14:45 06/06/23 15:00 06/06/23 15:30 Temperature 96.5 F L Pulse Rate 58 L 66 69 Pulse Rate [Left P ulse Oximeter] Respiratory Rate 16 18 16 Blood Pressure 122/76 102/64 100/62 Blood Pressure [Ri ght Arm] Pulse Oximetry 94 92 94 Oxygen Delivery Me thod Room Air Room Air Room Air Oxygen Flow Rate 06/06/23 16:00 06/06/23 17:00 06/06/23 18:00 Temperature 97.3 F L 97.4 F L Pulse Rate 59 L 64 68 Pulse Rate [Left P ulse Oximeter] Respiratory Rate 16 16 16 Blood Pressure 108/61 101/68 105/66 Blood Pressure [Ri ght Arm] Pulse Oximetry 93 94 95 Oxygen Delivery Me thod Room Air Room Air Room Air Oxygen Flow Rate 06/06/23 23:00 06/07/23 03:03 06/07/23 07:00 Temperature 98.1 F 98.2 F 98.2 F Pulse Rate Pulse Rate [Left P ulse Oximeter] 72 63 73 Respiratory Rate 18 16 20 Blood Pressure Blood Pressure [Ri ght Arm] 121/70 118/68 110/66 Pulse Oximetry 97 93 98 Oxygen Delivery Me thod Room Air Room Air Room Air Oxygen Flow Rate 06/07/23 07:00 Temperature Pulse Rate Pulse Rate [Left P ulse Oximeter] 73 Respiratory Rate 20 Blood Pressure Blood Pressure [Ri ght Arm] Pulse Oximetry Oxygen Delivery Me thod Oxygen Flow Rate Documenting provider has reviewed patient's vital signs: yes DS: Data Data Completed and Pending Labs on day of discharge: Labs from last 24 hours 06/07/23 06/06/23 06:03 09:28 WBC 14.00 H RBC 3.67 L Hgb 12.1 Hct 36.2 MCV 99 MCH 33 MCHC 33 RDW Coeff of Taniya 13.1 Plt Count 301 Neut % (Auto) 87.4 H Lymph % (Auto) 5.1 L [place] % (Auto) 6.2 Eos % (Auto) 0.0 Baso % (Auto) 0.1 Neut # (Auto) 12.20 H Lymph # (Auto) 0.70 L [place] # (Auto) 0.90 Eos # (Auto) 0.00 Baso # (Auto) 0.00 Abs Immat Gran (auto) 0.20 Imm/Tot Granulo (auto) 1.2 Sodium 135 Potassium 3.9 BUN 18 Creatinine 0.9 Estimated Creat Clear 49.72 Estimated GFR 72 Blood Type O Positive Antibody Screen NEGATIVE Discharge Plan Discharge Disposition: Home w/ Parent or Adult Discharging Surgeon: Artie Mariee Follow-Up Appointment: 1 week PO with [facility] Prescriptions: New apixaban 2.5 mg tablet 2.5 mg PO BID Qty: 70 0RF sennosides-docusate sodium [Senna-S] 8.6-50 mg tablet 1 - 4 tab-cap PO BID PRN (Reason: constipation) Qty: 60 0RF Rx Instructions: Hold medication if experiencing loose stools. acetaminophen 500 mg capsule 500 - 1,000 mg PO Q6H MDD 4000mg PRNQty: 100 0RF oxycodone 5 mg tablet 2.5 - 5 mg PO Q4-6H MDD 6 PRN (Reason: pain) Qty: 42 0RF Rx Instructions: Take as needed for postop pain: 2.5mg mild pain, 5mg moderate-severe pain; wean as tolerated. Continued cinnamon bark 500 mg capsule 500 mg PO DAILY turmeric-turmeric root extract 450-50 mg capsule 1 cap PO DAILY ketoconazole 2 % cream 1 applic topical BID PRN sulfacetamide sodium (acne) [Klaron] 10 % suspension 1 applic topical BID PRN atenolol 25 mg tablet 25 mg PO DAILY Qty: 90 3RF triamterene-hydrochlorothiazid 37.5-25 mg capsule 1 cap PO DAILY Qty: 90 3RF simvastatin 20 mg tablet 20 mg PO HS Activity Level: Activity as Tolerated, Weight Bearing as Tolerated, Use Cane and Use Walker Activity Detail: Wound: ? Do not remove original dressing; we will remove this at first postop visit in 1 week. Only remove dressing if integrity is in question. ? No immersing wound in water; showering okay; light scrub with your hand and body soap, rinse, dab dry ? Sutures are under the skin, will dissolve; allow surgical glue to come off naturally; do not scrub the wound or apply ointments/lotions ? Call our office with any redness that streaks, excessive drainage from the wound, or wound gapping. Ice/Elevate: ? Ice as needed for swelling and discomfort (ice pack); elevate extremity frequently above the heart. Motion/Exercise: ? Weight bear as tolerated operative extremity (walker/cane for ambulation assistance as needed) ? Per PT/OT. ? Straight leg raises daily: 1-2 sets of 10 reps Pain Medications: ? Oral narcotic as prescribed. Wean as tolerated. Additional acetaminophen and ibuprofen as needed. LANDY socks: ? Wear for 1 month, remove for 1 hour 3 times per day ? These are frustrating to take on/off, but are important for blood clot prevention for 1 month after surgery Blood Clot Prevention (DVT): ? Medication: 35 days of apixaban 2.5 mg twice daily due to past history of DVT and PE 2018. Driving: ? Do not drive while taking narcotic pain medication ? Anticipate 4-6 weeks no driving if operative leg is driving leg Dental: ? No elective dental work for 6 months post-op. If there is an urgent/emergent dental need, contact our office for an antibiotic prescription. Smoking/Alcohol: ? Do not smoke; do no drink alcohol especially when taking postoperative oral narcotic medication Seek Care from you Primary Care Provider if you experience the following issues in the postoperative phase and beyond: ? Bacterial infections such as: pneumonia, bacterial skin infection (cellulitis), UTI, high fever, chills unrelated to the operative body part - call your primary care physician urgently for treatment in hopes to protect your health and the metal implant. Referrals: ? PT, OT per patient preference - evaluate treat total hip arthroplasty protocol, anterior approach (gait training, ROM, ADLs) Vaccines: ? No vaccines until 4-6 weeks postop Follow up: ? PA-C visit in 1 week. ? Ortho surgeon follow-up in 6 weeks; repeat radiographs AP pelvis, cross table lateral operative hip If there are any acute concerns regarding your surgery, please call our orthopedic clinic ([phone]) Discharge Diet: Regular Patient Instructions: Acetaminophen (By mouth), Laxative, Stimulant (By mouth), Oxycodone, Rapid Release (By mouth), Apixaban (By mouth), Anterior Hip Replacement (DC) Follow-up: Alyssa Xavier MD [Primary Care Provider] - Karan Sheldon PA-C [Physician Tobacco Sizer] - 06/15/23 8:30 am ([facility] for follow up ) Discharge Orders: Discharge Order (Routine); Ordered 06/07/23 Ordered By: Karan Sheldon Consulting provider completed their portion of the discharge: Yes
== END 2023-06-07 11:25 | disposition home or self-care (01) ==
LOC: OR 08:54 → MEDSURG 08:56
PROVIDERS: PCP Internal Medicine; Visit Provider Orthopaedic Surgery Sports Medicine
PROC: (CPT 27130; principal; 2023-06-06 10:00)
DX: M16.12 Unilateral primary osteoarthritis, left hip (principal); G89.18 Other acute postprocedural pain; E66.9 Obesity, unspecified; Z68.36 Body mass index [BMI] 36.0-36.9, adult; Z86.718 Personal history of other venous thrombosis and embolism; Z86.711 Personal history of pulmonary embolism; Z79.01 Long term (current) use of anticoagulants; I10 Essential (primary) hypertension; E78.5 Hyperlipidemia, unspecified; I44.7 Left bundle-branch block, unspecified
CPT/HCPCS: 27130; 01214; 36415; 64450; 73501; 76942; 82565; 84132; 84295; 84520; 85025; 86850; 86900; 86901; 97110; 97116; 97161; 97165; 97530; 97535; A9270; C1776; J0690; J1100; J1170; J1885; J2250; J2405; J2704; J2710; J2765; J2795; J3010; J7120

== ENCOUNTER 2023-07-04 11:15 | Outpatient (RCR) | payer BC, SELFPAY | END 2023-09-04 09:41 | disposition home or self-care (01) | PROVIDERS: PCP Internal Medicine; Visit Provider Orthopaedic Surgery Sports Medicine | DX: M16.12 Unilateral primary osteoarthritis, left hip (principal); Z96.642 Presence of left artificial hip joint; Z51.89 Encounter for other specified aftercare | CPT/HCPCS: 97110; 97161 ==

== ENCOUNTER 2024-03-03 10:15 | Outpatient (RCR) | payer BC, SELFPAY ==
--- NOTE | 2023-12-06 08:33 | PT.OPEX ---
PT [place] Outpatient Eval PT [facility] Outpatient Eval Start: 11/21/23 11:17 Freq: Status: Active Protocol: Document 12/06/23 06:56 MLS (Rec: 12/06/23 08:30 MLS [id number]) E-signed By Helen Pena DPT Physical Therapy Outpatient Evaluation Insurance Information Recert Due Date 03/04/24 Insurance Name Medicare B,Blue [employer] Medical Diagnosis M70.61 Trochanteric bursitis, right hip M76.891 other specified enthesopathies of right lower limb, excluding foot Right hip greater trochanteric bursitis/hip abductor tendonitis Treating Diagnosis Right hip stretching and strengthening program Referring MD Dr. Anaya Subjective Preferred Name Bianca Subjective Patient is a 63 year old female who presents to physical therapy with signs and symptoms consistent with right hip pain. She states that the pain in her right hip started after she had her left hip surgery. Aggravating factors include: exercise, walking, and standing. Alleviating factors include: elevating legs, resting. She did have a cortisone injection 11/20/23. She states that it made a difference the first week but this week the pain is back. No complaints of numbness or tingling in right lower extremity. She states that for exercise she is walking, squats, lunges, 5 pound dumbbells and light cardio Significant past medical history includes : left AUDRA 06/26, hypertension ( controlled), DVT, debridement of right knee (2019) and left shoulder twice (2009), and arthritis Patient would like to achieve less pain through physical therapy sessions. Pain Comments Today: 5/10 on a 0-10 pain scale with 10 = extreme pain At its worst: 10/10 At its best: 5/10 Current Work Status Retired Objective Other/Pertinent Objective KNEE ROM Grossly tested WNL HIP ROM Left: WNL Right: Flexion: 90 Internal Rotation: 10 with pain External Rotation: 20 Abduction: 30 LLE MMT: Hip flexion: R 4/5 L 4+/5 Hip abduction: R 4-/5 L 4/5 Hip extension: R 4/5 L 4/5 Knee flexion: R 5/5 L 5/5 Knee extension: R 5/5 L 5/5 SPECIAL TEST -Lorenzo Compression: negative -Hip quadrant test: negative -LAMONTE: negative -FADIR negative -Trochanteric Bursitis Test: positive -SLR: negative JOINT MOBILITY/PALPATION severely tender greater troch, severely tender hip abductor insertion TX: Piriformis stretch with rotation Assessment Assessment/Impression Pt is a 63 year old female who presents with concerns of right hip pain. Patient also has notable objective findings including limited ROM, tenderness to palpation, and decreased strength which are also likely contributing to the problem. Patient is a good candidate for skilled therapy to target deficits described above. Skilled PT intervention is necessary for use of therapeutic exercise manual therapy, neuromuscular re- education, gait training, and therapeutic activity. Functional impairments include difficulty with: standing, walking, sleeping, exercising, and ADLS. See appropriate sections of PT eval for complete list of goals and POC . D/C plan and criteria is for pt to achieve the goals as listed below or until max rehab potential is met. Pt was agreeable with plan of care and goals established. Patient 20 minutes late for evaluation. Primary Functional Limitations standing walking exercising ADLs sleeping Plan of Care Physical Therapy Goals Within 10-12 weeks: 1.Pt will demonstrate independence in performance of home exercise program with the use of video and/or handouts in order to optimize functional mobility and reduce risk for re-injury. 2.Pt will demonstrate consistent HEP compliance to ensure progress in reaching established goals during course of care. 3.Patient will be able to grocery shop for 30 minutes without pain. 4.Patient will report pain levels <2/10 with all activities in order to improve functional mobility at home, work and during functional leisure activities. 5.Patient is able to sleep without waking more than one time due to pain in a 6-8 hour time frame. 6.Patient will be able to walk up to one mile without pain. 7.Patient will be able to bend and lift household items from the floor to perform ADLs without pain. 8.Pt will be able to ascend/ descend 1 flight of stairs in order to perform ADLs pain free. Coordination/Communication With Referral Source Treatment Plan/Direct Interventions Joint Mobilization,Manual Therapy,Neuromuscular Re-ed, Therapeutic Activities, Therapeutic Exercises, Ultrasound Patient Will Be Discharged From Therapy Independently Progressing Evaluation Billing Untimed Code Treatment Minutes 30 Complexity Low Certification Information Provider Signature Required Yes Provider Signature Shows Agreement With POC & Medical Necessity Physician NPI Number Write NPI# Here Physician Comment/Change : Physician Signature & Date Requested Please Sign/Date Here
== END 2024-04-21 08:33 | disposition home or self-care (01) ==
PROVIDERS: PCP Internal Medicine; Visit Provider Orthopaedic Surgery Sports Medicine
DX: M70.61 Trochanteric bursitis, right hip (principal); M76.891 Other specified enthesopathies of right lower limb, excluding foot; Z51.89 Encounter for other specified aftercare
CPT/HCPCS: 97110; 97140; 97161

== ENCOUNTER 2024-03-23 12:23 | Emergency (ER) | payer BC, SELFPAY ==
--- OUTSIDE RECORDS SUMMARY | 2024-03-23 12:25 | XMS_ITS | Continuity of Care Document ---
Author Name NwHIN User [email or web address] llowed Address Unknown Organization Unknown Address Unknown Procedures FILTER APPLIED:Only known Procedures with Onset Date within the last 5 years Procedure Date Procedure Provider Additiona l Information Status THERAPEUTIC EXERCISES (51261) Completed OT EVAL LOW COMPLEX 30 MIN (69141) Completed GAIT TRAINING THERAPY (14846) Completed THERAPEUTIC EXERCISES (87548) Completed COMPLETE CBC W/AUTO DIFF WBC (18341) Completed ASSAY OF UREA NITROGEN (87687) Completed ASSAY OF SERUM SODIUM (85559) Completed ASSAY OF SERUM POTASSIUM (86581) Completed ASSAY OF CREATININE (38561) Completed SELF CARE MNGMENT TRAINING (51228) Completed THERAPEUTIC ACTIVITIES (99143) Completed ARTHRP ACETBLR/PROX FEM PROSTC AGRFT/ALGRFT (75043) Completed X-RAY EXAM HIP UNI 1 VIEW (24981) Completed BLOOD TYPING SEROLOGIC RH(D) (29406) Completed ROUTINE VENIPUNCTURE (45266) Completed ECHO GUIDE FOR BIOPSY (35196) Completed RBC ANTIBODY SCREEN (40190) Completed ANESTH HIP ARTHROPLASTY (97505) Completed PT EVAL LOW COMPLEX 20 MIN (21334) Completed BLOOD TYPING SEROLOGIC ABO (38970) Completed PT EVAL LOW COMPLEX 20 MIN (52648) Completed COMPREHEN METABOLIC PANEL (92629) Completed LIPID PANEL (95151) Comp leted METABOLIC PANEL TOTAL CA (62540) Completed Encounters FILTER APPLIED:Only known Encounters with Admission Date within the last 5 years Encounter Location Admission Discharge Billing Code Consultant Jennifer herbert Outpatient Josefa Xavier Outpatient Josefa Xavier Outpatient Josefa Xavier Outpatient Artie Mariee Outpatient Artie hollins
--- OUTSIDE RECORDS SUMMARY | 2024-03-23 12:25 | XMS_ITS | Clinical Summary ---
Author Organization [facility] Address [place], [place] [address] Care Team Providers Care Motor Vehicle Field Representative Name Role Phone Alyssa Xavier MD Primary Care Provider [phone] Allergies No known active allergies Medications acetaminophen SR (TYLENOL 8 HOUR) 650 mg Extended-Releas e tablet Take 650 mg by mouth every 8 hours if needed. Max acetaminophen dose: 4000mg in 24 hrs. Active atenolol (TENORMIN) 25 mg tablet Take 25 mg by mouth once daily. Active sennosides-docu sate, 8.6-50 mg, (SENNA-TIME S) 8.6-50 mg tablet Take 1 tablet by mouth once daily. Active simvastatin (ZOCOR) 20 mg tablet Take 20 mg by mouth at bedtime. Active traMADol (ULTRAM) 50 mg tablet Take 1 to 2 tablets by mouth every 4 hours as needed for pain. Active triamterene-hyd rochlorothiazid e, 37.5-25 mg, (DYAZIDE) 37.5-25 mg capsule Take 1 capsule by mouth every morning. Active apixaban (ELIQUIS) 5 mg tabletIndicatio ns:Acute septic pulmonary embolism with acute cor pulmonale (HC),Deep vein thrombosis (DVT) of proximal vein of both lower extremities, unspecified chronicity (HC) Take 1 tablet by mouth 2 times daily. 180 tablet 1 0 Active Active Problems Problem Noted Date Diagnosed Date Acute pulmonary embolism with acute cor pulmonal e 07/12/2018 DVT of lower extremity, bilateral 07/12/2018 HTN (hypertension) Hyperlipidemia Social History Tobacco Use Types Packs/Day Years Used Date Smoking Tobacco: Former Smokeless Tobacco: Never Alcohol Use Standard Drinks/Week Comments Yes 10 (1 standard drink = 0.6 oz pu re alcohol) Social Connections Answer Date Recorded Frequency of Communication with Friends and Fami ly Not on file 03/05/2021 Financial Resource Strain Answer Date R ecorded Difficulty of Paying Living Expenses Not on file 03/05/2021 Difficulty of Paying Living Expenses Not on file 03/05/2021 Comments No Sex and Gender Information Value Date Recorded Sex Assigned at Not on file Legal Sex Female 5:46 AM EQUIPMENT HIRE MANAGER Gender Identity Not on file Sexual Orientation Not on file Obstetrics History Last Filed Vital Signs Vital Sign Reading Time Taken Comments Blood Pressure 150/90 09/03/2020 7:50 AM CDT Pulse 65 09/03/2020 7:50 AM CDT Temperature 37.1 C (98.8 F) 07/17/2018 9:00 AM CDT Respiratory Rate 16 07/17/2018 9:00 AM CDT Oxygen Saturation 100% 09/03/2020 7:50 AM CDT Inhaled Oxygen Concentration - - Weight 93.4 kg (206 lb) 09/03/2020 7:50 AM CDT Height 162.6 cm (5' 4) 09/03/2020 7:50 AM CDT Body Mass Index 35.36 09/03/2020 7:50 AM CDT Plan of Treatment Health Maintenance Due Date Last Done Comments Tdap 1971 Depression screening for age 12+ 1972 HIV for age 15-65 1975 Hepatitis C screening for age 18-79 1978 Tetanus booster 1980 Colonoscopy through age 75 2005 Lipids for age 45-75 2005 Mammogram for age 45-75 02/28/2006 02/28/2005 Pneumococcal series for age 50+ (1 of 1 - PCV) 2010 Zoster (shingles) series for age 50+ (1 of 2) 2010 BMI (ht and wt on same day) for age 18+ 09/03/2021 09/03/2020 COVID-19 vaccine series ( season) 2023 04/25/2020, 03/28/2020 Influenza for age 50-64 11/04/2023 Pap test for age 21-65 12/18/2025 , 12/18/2022, 12/05/2016, Additional history exists RSV vaccine for adults or (1 - 1-dose 75+ series) 2035 Pneumococcal series for age 6-49 Aged Out No longer eligible based on patient's age to complete this topic Procedures Procedure Name Priority Date/Time Associated Diagnosis Comments HPV HIGH RISK Routine 12/18/2022 1:30 PM CDT XR MAMMO BILAT SCREEN FFDM (IA) Routine 02/28/2005 4:30 PM EQUIPMENT HIRE MANAGER Screening Mammogram Other from Last 3 Months or Most Recently Relevant to Health Maintenance Results * HPV HIGH RISK (12/18/2022 1:30 PM CDT) TYPE 16 Negative Negative 12/22/2022 5:32 AM CDT [facility] TYPE 18 Negative Negative 12/22/2022 5:32 AM CDT [facility] OTHER HIGH RISK TYPES Negative Negative 12/22/2022 5:32 AM CDT [facility] Other (Cervical) 12/18/2022 1:30 PM CDT 12/20/2022 2:46 PM CDT Narrative [facility] - 12/22/2022 5:32 AM CDT HPV types 16, 18, 31, 33, 35, 39, 45, 51, 52, 56, 58, 59, 66 and 68 DNA were undetectable or below the pre-set threshold. Methodology: Gonzalez Shirley 4800 HPV Test us Alyssa Xavier MD MICROBIOLOGY Final Resu lt [facility] [address] [place] [address], * XR MAMMO BILAT SCREEN FFDM (02/28/2005 4:30 PM EQUIPMENT HIRE MANAGER) Anatomical Region Laterality Modality BREASTS, Breast Left, Breast Right Bilateral Mammography 02/28/2005 4:30 PM EQUIPMENT HIRE MANAGER Impressions 03/02/2005 1:45 PM EQUIPMENT HIRE MANAGER There is no radiographic evidence for malignancy. Recommend annual mammograms. [facility] will provide a results postcard to the patient at the time of the appointment or through the mail. Narrative 03/02/2005 1:45 PM EQUIPMENT HIRE MANAGER BILATERAL FULL-FIELD DIGITAL SCREENING MAMMOGRAM INTERPRETED WITH COMPUTER-AIDED DETECTION, 02/28/05 CLINICAL HISTORY: This is an asymptomatic 44 y.o. patient. FINDINGS: This mammogram was performed with full-field digital technique and with the benefit of computer-aided detection. The study is compared to previous studies from [facility] dated 09/02/03 and shows no significant change. The breast tissue is almost entirely fat. There are no masses or calcifications that are suspicious for malignancy. Procedure Note Ernie Muñoz MD - 03/02/2005 BILATERAL FULL-FIELD DIGITAL SCREENING MAMMOGRAM INTERPRETED WITHCOMPUTER-AIDED DETECTION, 02/28/05 CLINICAL HISTORY: This is an asymptomatic 44 y.o. patient. FINDINGS: This mammogram was performed with full-field digital techniqueand with the benefit of computer-aided detection. The study is compared to previous studies from [facility] dated09/02/03 and shows no significant change. The breast tissue is almost entirely fat. There are no masses or calcifications that are suspicious formalignancy. IMPRESSION: There is no radiographic evidence for malignancy. Recommendannual mammograms. The [facility] will provide a results postcard to the patient atthe time of the appointment or through the mail. Liam Hernandez MD MAMMO Final Result from Last 3 Months or Most Recently Relevant to Health Maintenance Advance Directives * Full Code (Latest Code Status on File) Date Activated Date Inactivated Comments 07/12/2018 3:28 PM 07/17/2018 6:14 PM Care Teams Motor Vehicle Field Representative Relationship Specialty Start Date End Date Alyssa Xavier MD [address] [place] [address] PCP - General Internal Medicine 09/17/20
--- OUTSIDE RECORDS SUMMARY | 2024-03-23 12:25 | XMS_ITS | Continuity of Care Document ---
Author Organization [facility] Address [address] [place] [address] Phone Care Team Providers Care Mortising Machine Operator Name Role Phone Kerwin Huerta MD Unavailable [...] Refills per PMD Procedures Procedure Date Office/Outpatient Visit,[facility] 2017 Office/Outpatient Visit,[facility] 2011 Advance Directives Directive Yes / No Effective Date File Name No Information Encounters Encounter Description Practice Location Reason(s) For Visit Diagnoses Date Provider Providers Copied on Encounter Office/Outpat ient Visit,New, [facility], [address], [place], [place], [id number], [place] tel:[phone] [facility] [place] [facility] Other intervertebral disc displacement, lumbar regionSpinal stenosis, lumbar region with neurogenic claudication 8 Bradley Suresh. [facility] [place], [address], [address], [place], [place], [id number] , [place]. tel:[phone] Referring Provider: Kerwin Rodriguez, [facility] [address], [address], [place], [address] . tel:[phone] Office/Outpat ient Visit,New, Mod [facility], [address], [place], [address], [place] tel:[phone] [facility] Hypercholestero lemiaArthropath y/Arthritis 2 Bradley Suresh. [facility], [address], [address], [place], [place], [id number] , . [phone] Family History Family Member Type Diagnosis Age At Onset No Information Payers Payer name Insurance type Covered libertarian ID Nanda lira(kaye Beard CI [id number] Social History Type Description Quantity Date Captured [...]
[2024-03-23 12:29] VITALS: BP 134/84; PULSE 100; RESP 16; TEMP 36.9; O2SAT 97; BMI 34.3
--- NOTE | 2024-03-23 12:52 | ED.GENADULT ---
HPI - General Adult General Chief complaint: Cough Stated complaint: Needs strep test.. Time Seen by Provider: 03/23/24 12:28 History of Present Illness HPI narrative: Patient is a 63-year-old woman who comes in today with nonproductive cough body aches fatigue and chills. She has states that her cough is nonproductive. She is otherwise feeling reasonably well no nausea vomiting diarrhea no rashes no bruises no stiff neck. She has been sick for last 24 hours. She just returned on airplane from [place]. Related Data Home Medications ?Medication ?Instructions ?Recorded ?Confirmed ketoconazole 2 % topical cream 1 applic topical BID PRN 12/18/22 11/20/23 sulfacetamide sodium (acne) 10 % 1 applic topical BID PRN 12/18/22 11/20/23 lotion (suspension) (Klaron) cinnamon bark 500 mg capsule 500 mg PO QDAY 11/20/23 03/23/24 (Cinnamon) turmeric 400 mg capsule mg PO 11/20/23 11/20/23 Previous Rx's ?Medication ?Instructions ?Recorded atenolol 25 mg tablet 25 mg PO DAILY #90 tabs 01/02/24 triamterene 37.5 1 cap PO DAILY #90 caps 01/02/24 mg-hydrochlorothiazide 25 mg capsule Allergies Allergy/AdvReac Type Severity Reaction Status Date / Time bee venom protein (honey bee) AdvReac Verified 03/23/24 12:35 Review of Systems Status of ROS: Reports: 10 or more systems reviewed and unremarkable except as noted in History and below [facility] Medical History History of renal calculi ?Z87.442 - Personal history of urinary calculi (ICD-10) Surgical History History of total left hip replacement (06/06/23) ?Z96.642 - Presence of left artificial hip joint (ICD-10) Rupture of ligament of left ankle ?S93.402A - Sprain of unspecified ligament of left ankle, initial encounter (ICD-10) History of bilateral carpal tunnel release ?Z98.890 - Other specified postprocedural states (ICD-10) History of SCC (squamous cell carcinoma) of skin ?Z85.828 - Personal history of other malignant neoplasm of skin (ICD-10) History of arthroscopy of left shoulder (2005) ?Z98.890 - Other specified postprocedural states (ICD-10) History of pubovaginal sling (06/2005) ?Z96.0 - Presence of urogenital implants (ICD-10) History of facial surgery ?Z98.890 - Other specified postprocedural states (ICD-10) History of endometrial ablation (06/2005) ?Z98.890 - Other specified postprocedural states (ICD-10) History of carpal tunnel release ?Z98.890 - Other specified postprocedural states (ICD-10) History of breast biopsy (09/19/11) ?Z98.890 - Other specified postprocedural states (ICD-10) History of arthroscopic knee surgery (03/2019) ?Z98.890 - Other specified postprocedural states (ICD-10) Family History Mother Bleeding tendency Father High blood pressure Heart problem Maternal Grandmother High blood pressure Heart problem Paternal Grandfather Stroke High blood pressure Social History Narrative: . 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 Denies tobacco use. Smoked socially in college. Recently cut down alcohol use due to 's elevated glucose test. Now drinking 2-3 drinks twice a week. Denies recreational drug use. What is your current living situation?: I presently have a place to live Problems where you live: no known problems In the past 12 months, utilities in danger of being shut off: no In past 12 months, lack of transportation kept you from medical appts, meetings, work, or getting things needed for daily living: no In the past 12 mos, have been you worried that your food would run out before you had money to buy more?: never true In the past 12 mos, the food you bought just didn't last and you didn't have money to buy more?: never true Highest level of school completed/degree received: Associate degree: occupational, technical, vocational program Smoking Status: Former smoker What tobacco products do you use: cigarettes Smoking quit date/years: >15 years ago Do you use any of these nicotine containing products: None Second hand tobacco smoke exposure: No How often do you have a drink containing alcohol: 2-3 times a week Alcohol type: wine and hard liquor How many standard drinks containing alcohol do you have on a typical day: 1 or 2 How often do you have six or more drinks on one occasion: Never AUDIT-C Alcohol total score: 3 Non-prescribed substance use: denies use Caffeine: Yes How often does anyone, including family, friends and others, physically hurt you: never How often does anyone, including family, friends and others, insult or talk down to you: never How often does anyone, including family, friends and others, threaten you with harm: never How often does anyone, including family, friends and others, scream or curse at you: never service: No Exam Narrative: Exam Narrative: EXAM GENERAL: Patient appears comfortable and well. EYES: No scleral icterus. ENT: Tympanic membranes and oropharynx normal. THYROID: no thyroid nodules or thyromegaly. LYMPH: No supraclavicular or cervical lymphadenopathy. SKIN: Visible skin seen during exam normal or with benign process only. EXT: No dependent lower extremity pedal edema. HEART: Regular rate and rhythm with no murmurs, rubs, or gallops. LUNGS: Clear to auscultation bilaterally with no crackles or wheezes. ABD: Soft, non tender, non distended. PSYCH: Good eye contact, speech is not pressured. Const: Vital Signs, click to edit/add: Vital Signs - 24 hr 03/23/24 12:29 Temperature 98.4 F Pulse Rate [Pulse Oximeter] 100 Respiratory Rate 16 Blood Pressure [Ri ght Upper Arm] 134/84 Pulse Oximetry 97 Oxygen Delivery Me thod Room Air Course Course ED Course: Viral swab and rapid strep pending. Vital Signs Vital signs: Initial Vital Signs Temperature 98.4 F 03/23/24 12:29 Temperature Source Temporal Artery Scan 03/23/24 12:29 Pulse Rate 100 03/23/24 12:29 Respiratory Rate 16 03/23/24 12:29 Blood Pressure 134/84 03/23/24 12:29 Blood Pressure Mean 100 03/23/24 12:29 Blood Pressure Position Sitting 03/23/24 12:29 Pulse Oximetry 97 03/23/24 12:29 Oxygen Delivery Method Room Air 03/23/24 12:29 Vital Signs Temperature 98.4 F 03/23/24 12:29 Pulse Rate 100 03/23/24 12:29 Respiratory Rate 16 03/23/24 12:29 Blood Pressure 134/84 03/23/24 12:29 Pulse Oximetry 97 03/23/24 12:29 Oxygen Delivery Method Room Air 03/23/24 12:29 Temperature 98.4 F 03/23/24 12:29 Pulse Rate 100 03/23/24 12:29 Respiratory Rate 16 03/23/24 12:29 Blood Pressure 134/84 03/23/24 12:29 Pulse Oximetry 97 03/23/24 12:29 Oxygen Delivery Method Room Air 03/23/24 12:29 Medical Decision Making MDM Narrative Medical decision making narrative: Patient is a 63-year-old woman who presents with viral syndrome picture. She test positive for influenza AE. I see no evidence of other pathology. Vital signs and exam were normal. I did treated with Tamiflu Tylenol rest fluids and follow-up as needed. Lab Data Labs: Lab Results 03/23/24 Range/Units 12:35 SARS-CoV-2 (PCR) Negative SARS-CoV-2 (Negative) Influenza Type A (PCR) POSITIVE PCR FLU A A (Negative) Influenza Type B (PCR) Negative PCR FLU B (Negative) RSV (PCR) Negative PCR RSV (Negative) Group A Strep DNA NOT DETECTED (Not Detectd) Discharge Plan Discharge Clinical Impression: Influenza A Patient Disposition: Home, Self-Care Condition: Stable Instructions: Influenza (ED) Additional Instructions: Tamiflu as directed Tylenol Motrin Rest Fluids Activity Level: No Restrictions Discharge Diet: Regular Prescriptions: No Action ketoconazole 2 % cream 1 applic topical BID PRN sulfacetamide sodium (acne) [Klaron] 10 % suspension 1 applic topical BID PRN cinnamon bark [Cinnamon] 500 mg capsule 500 mg PO QDAY turmeric 400 mg capsule PO triamterene-hydrochlorothiazid 37.5-25 mg capsule 1 cap PO DAILY Qty: 90 0RF Rx Instructions: Needs appointment for further refills. atenolol 25 mg tablet 25 mg PO DAILY Qty: 90 0RF Follow Up/Referrals: Alyssa Xavier MD [Primary Care Provider] - Stand Alone Forms: [employer] Info Instructions
--- OUTSIDE RECORDS SUMMARY | 2024-03-23 13:08 | XMS_ITS | Continuity of Care Document ---
Author Organization [facility] Address [address] [place] [address] Phone Care Team Providers Care Milk Wagon Driver Name Role Phone Kerwin Heurta MD Unavailable Unavailable Allergies, Adverse Reactions, Alerts Substance Reaction Status Criticality venom-honey bee Active No Informati on Medications Medication Instructions Dosage Effective Dates (start - stop) Status Comments ATORVASTATIN CALCIUM (unknown strength) Not Available - Active LASIX (unknown strength) Not Available - Active prednisone 20 mg tablet take 1 tablet twice daily x 7 days, then 1 tablet daily x 7 days - No Longer Active Mobic 7.5 mg tablet take 1 tablet (7.5MG) by oral route twice daily - No Longer Active Refills per PMD Procedures Procedure Date Office/Outpatient Visit,[facility] [place] 2017 Office/Outpatient Visit,[facility] 2011 Advance Directives Directive Yes / No Effective Date File Name No Information Encounters Encounter Description Practice Location Reason(s) For Visit Diagnoses Date Provider Providers Copied on Encounter Office/Outpat ient Visit,New, [facility], [address], [place], [place], [id number], [place] tel:[phone] [facility] [place] Other intervertebral disc displacement, lumbar regionSpinal stenosis, lumbar region with neurogenic claudication 8 Bradley Suresh. [facility] [place], [address], [address], [place], [place], [id number] , [place]. tel:[phone] Referring Provider: Kerwin Rodriguez, [facility] [address], [address], [place], [address] . tel:[phone] Office/Outpat ient Visit,New, Mod Z [facility], [address], [place], [address], [place] tel:[phone] [facility] Hypercholestero lemiaArthropath y/Arthritis 2 Bradley Suresh. [facility], [address], [address], [place], [place], [id number] , . [phone] Family History Family Member Type Diagnosis Age At Onset No Information Payers Payer name Insurance type Covered alliance party ID Nanda lira(kaye Beard CI [id number] Social History Type Description Quantity Date Captured [...]
--- OUTSIDE RECORDS SUMMARY | 2024-03-23 13:08 | XMS_ITS | Continuity of Care Document ---
Author Name NwHIN User [email or web address] llowed Address Unknown Organization Unknown Address Unknown Procedures FILTER APPLIED:Only known Procedures with Onset Date within the last 5 years Procedure Date Procedure Provider Additiona l Information Status THERAPEUTIC EXERCISES (05246) Completed OT EVAL LOW COMPLEX 30 MIN (97286) Completed GAIT TRAINING THERAPY (50564) Completed THERAPEUTIC EXERCISES (84537) Completed COMPLETE CBC W/AUTO DIFF WBC (02970) Completed ASSAY OF UREA NITROGEN (83117) Completed ASSAY OF SERUM SODIUM (83506) Completed ASSAY OF SERUM POTASSIUM (34029) Completed ASSAY OF CREATININE (05922) Completed SELF CARE MNGMENT TRAINING (54201) Completed THERAPEUTIC ACTIVITIES (33946) Completed ARTHRP ACETBLR/PROX FEM PROSTC AGRFT/ALGRFT (73568) Completed X-RAY EXAM HIP UNI 1 VIEW (41729) Completed BLOOD TYPING SEROLOGIC RH(D) (67828) Completed ROUTINE VENIPUNCTURE (52712) Completed ECHO GUIDE FOR BIOPSY (99142) Completed RBC ANTIBODY SCREEN (67236) Completed ANESTH HIP ARTHROPLASTY (01336) Completed PT EVAL LOW COMPLEX 20 MIN (68569) Completed BLOOD TYPING SEROLOGIC ABO (60055) Completed PT EVAL LOW COMPLEX 20 MIN (01153) Completed COMPREHEN METABOLIC PANEL (61323) Completed LIPID PANEL (03883) Comp leted METABOLIC PANEL TOTAL CA (96082) Completed Encounters FILTER APPLIED:Only known Encounters with Admission Date within the last 5 years Encounter Location Admission Discharge Billing Code Consultant Jennifer herbert Outpatient Josefa Xavier Outpatient Josefa Xavier Outpatient Josefa Xavier Outpatient Artie Mariee Outpatient Artie hollins
--- OUTSIDE RECORDS SUMMARY | 2024-03-23 13:08 | XMS_ITS | Clinical Summary ---
Author Organization [email or web address] Address [place], [place] [address] Care Team Providers Care Lion Tamer Name Role Phone Alyssa Xavier MD Primary Care Provider [phone] Allergies No known active allergies Medications acetaminophen [...] on file Legal Sex Female 5:46 AM MELANGEUR OPERATOR Gender Identity Not on file Sexual Orientation [...] SCREEN FFDM (IA) Routine 02/28/2005 4:30 PM MELANGEUR OPERATOR Screening Mammogram Other from Last 3 Months or Most Recently Relevant to Health Maintenance Results * HPV HIGH RISK (12/18/2022 1:30 PM CDT) TYPE 16 Negative Negative 12/22/2022 5:32 AM CDT [facility] TYPE 18 Negative Negative 12/22/2022 5:32 AM CDT [facility] OTHER HIGH RISK TYPES Negative Negative 12/22/2022 5:32 AM CDT [facility] Other (Cervical) 12/18/2022 1:30 PM CDT 12/20/2022 2:46 PM CDT Narrative [facility] - 12/22/2022 5:32 AM CDT HPV types 16, 18, 31, 33, 35, 39, 45, 51, 52, 56, 58, 59, 66 and 68 DNA were undetectable or below the pre-set threshold. Methodology: Gonzalez Shirley 4800 HPV Test us Alyssa Xavier MD MICROBIOLOGY Final Resu lt [facility] [address] [place] [address], * XR MAMMO BILAT SCREEN FFDM (02/28/2005 4:30 PM MELANGEUR OPERATOR) Anatomical Region Laterality Modality BREASTS, Breast Left, Breast Right Bilateral Mammography 02/28/2005 4:30 PM MELANGEUR OPERATOR Impressions 03/02/2005 1:45 PM MELANGEUR OPERATOR There is no radiographic evidence for malignancy. Recommend annual mammograms. The [facility] will provide a results postcard to the patient at the time of the appointment or through the mail. Narrative 03/02/2005 1:45 PM MELANGEUR OPERATOR BILATERAL FULL-FIELD DIGITAL SCREENING MAMMOGRAM INTERPRETED WITH COMPUTER-AIDED DETECTION, 02/28/05 CLINICAL HISTORY: This is an asymptomatic 44 y.o. patient. FINDINGS: This mammogram was performed with full-field digital technique and with the benefit of computer-aided detection. The study is compared to previous studies from [facility] dated 09/02/03 and shows no significant change. [...] study is compared to previous studies from [facility] dated09/02/03 and shows no significant change. The breast tissue is almost entirely fat. There are no masses or calcifications that are suspicious formalignancy. IMPRESSION: There is no radiographic evidence for malignancy. Recommendannual mammograms. The [facility] will provide a results postcard to the patient atthe time of the appointment or through the mail. Liam Hernandez MD MAMMO Final Result from Last 3 Months or Most Recently Relevant to Health Maintenance Advance Directives * Full Code (Latest Code Status on File) Date Activated Date Inactivated Comments 07/12/2018 3:28 PM 07/17/2018 6:14 PM Care Teams Lion Tamer Relationship Specialty Start Date End Date Alyssa Xavier MD [address] [place] [address] PCP - General Internal Medicine 09/17/20
[2024-03-23 13:20] LABS: Strep A DNA Probe* NOT DETECTED (Not Detectd)
[2024-03-23 13:32] LABS: PCR FLU A POSITIVE PCR FLU A (Negative); PCR FLU B Negative PCR FLU B (Negative); PCR RSV Negative PCR RSV (Negative); SARS PCR* Negative SARS-CoV-2 (Negative)
== END 2024-03-23 13:47 | disposition home or self-care (01) ==
PROVIDERS: Emergency Provider Internal Medicine; PCP Internal Medicine
DX: J09.X2 Influenza due to identified novel influenza A virus with other respiratory manifestations (principal)
CPT/HCPCS: 87631; 87651; 99283

== ENCOUNTER 2024-06-23 08:40 | Outpatient (CLI) | payer BC, SELFPAY | END 2024-06-23 08:41 | disposition home or self-care (01) | LOC: NFLDREF 06-25 02:56 | PROVIDERS: PCP Internal Medicine; Referring Provider Internal Medicine; Visit Provider Internal Medicine | DX: E78.5 Hyperlipidemia, unspecified (principal); I10 Essential (primary) hypertension | CPT/HCPCS: 80048; 80061 ==

== ENCOUNTER 2024-10-01 09:49 | Outpatient (CLI) | payer BC, SELFPAY ==
--- NOTE | 2024-10-01 10:15 | CRLHL7_ITS ---
For Patients: As a result of the Century Cures Act, medical imaging exams and procedure reports are released immediately into your electronic medical record. You may view this report before your referring provider. If you have questions, please contact your health care provider. INDICATION: BILATERAL SCREENING MAMMOGRAM, ASYMPTOMATIC 64 Y/O FEMALE COMPARISON: 04/24/2022, 02/23/2021, 01/12/2020 TECHNIQUE: Digital mammogram in CC and MLO projections including computer-aided detection (CAD) and tomosynthesis. BREAST COMPOSITION: The breasts are almost entirely fatty. FINDINGS: No suspicious findings. ASSESSMENT: BI-RADS 1 Negative RECOMMENDATION: Annual screening mammogram. A lay language report of this examination will be provided to the patient. Dictated by: Bonita Flores MD @ 10/02/2024 13:08:07 (Electronically Signed)
== END 2024-10-01 09:50 | disposition home or self-care (01) ==
LOC: MAMMO 09:50
PROVIDERS: PCP Internal Medicine; Visit Provider Internal Medicine
DX: Z12.31 Encounter for screening mammogram for malignant neoplasm of breast (principal)
CPT/HCPCS: 77063; 77067

== ENCOUNTER 2024-12-30 07:23 | Outpatient (CLI) | payer BC, SELFPAY ==
--- NOTE | 2024-12-30 08:30 | P.ANES_ITS ---
Anesthesia Charges Start Date/Time Anesthesia Start Date: 12/30/24 Anesthesia Start Time: 08:03 Stop Date/Time Anesthesia Stop Date: 12/30/24 Anesthesia Stop Time: 08:33 Coding CPT Codes CPT Codes: SEJAL LWR INTST NDSC NOS - [id number] ([id number]) QK - DEMURRAGE AGENT 2-4 CNCRNT SEJAL PROC, QX - TRANSPORTATION LEAD SVC W/ MD MED DIRECTION, P2 - PATIENT W/MILD SYST DISEASE
--- NOTE | 2024-12-30 08:30 | W.ANESCHARGE ---
Anesthesia Charges Start Date/Time Anesthesia Start Date: 12/30/24 Anesthesia Start Time: 08:03 Stop Date/Time Anesthesia Stop Date: 12/30/24 Anesthesia Stop Time: 08:33 Coding CPT Codes CPT Codes: SEJAL LWR INTST NDSC NOS - [id number] ([id number]) QK - SEAL MIXING OPERATOR 2-4 CNCRNT SEJAL PROC, QX - LEAD JAVASCRIPT DEVELOPER SVC W/ MD MED DIRECTION, P2 - PATIENT W/MILD SYST DISEASE
--- NOTE | 2024-12-30 08:39 | P.ANES_ITS ---
Anesthesia Charges Start Date/Time Anesthesia Start Date: 12/30/24 Anesthesia Start Time: 08:03 Stop Date/Time Anesthesia Stop Date: 12/30/24 Anesthesia Stop Time: 08:33 Coding CPT Codes CPT Codes: SEJAL LWR INTST NDSC NOS - [id number] ([id number]) P2 - PATIENT W/MILD SYST DISEASE, QK - DELIVERY REP 2-4 CNCRNT ANES PROC, QX - ICE DELIVERY DRIVER SVC W/ MD MED DIRECTION
--- NOTE | 2024-12-30 08:39 | W.ANESCHARGE ---
Anesthesia Charges Start Date/Time Anesthesia Start Date: 12/30/24 Anesthesia Start Time: 08:03 Stop Date/Time Anesthesia Stop Date: 12/30/24 Anesthesia Stop Time: 08:33 Coding CPT Codes CPT Codes: SEJAL LWR INTST NDSC NOS - [id number] ([id number]) P2 - PATIENT W/MILD SYST DISEASE, QK - MATH INTERVENTIONIST 2-4 CNCRNT ANES PROC, QX - SOLID WASTE TRUCK DRIVER SVC W/ MD MED DIRECTION
== END 2024-12-30 07:24 | disposition home or self-care (01) ==
LOC: OP CLINIC 07:24
PROVIDERS: PCP Internal Medicine; Visit Provider Surgery
DX: Z12.11 Encounter for screening for malignant neoplasm of colon (principal); Z80.0 Family history of malignant neoplasm of digestive organs; Z86.0100 Personal history of colon polyps, unspecified; D12.2 Benign neoplasm of ascending colon; K63.5 Polyp of colon; K62.1 Rectal polyp
CPT/HCPCS: 00811; 00812; 45385; 88305; J2704